=== PATIENT | female | born 1940 | race Caucasian/White ===

== ENCOUNTER 2017-03-06 09:31 | Emergency (ER) | payer BC, OTHER ==
[~2017-03-06] VITALS: Ht 162.6 cm; Wt 56.4 kg
[2017-03-06 12:26] VITALS: BP 179/95
== END 2017-03-06 12:26 | disposition home or self-care (01) ==
LOC: ED 09:31
DX: S50.02XA Contusion of left elbow, initial encounter (principal); W19.XXXA Unspecified fall, initial encounter; Y93.89 Activity, other specified; Y92.096 Garden or yard of other non-institutional residence as the place of occurrence of the external cause; Y99.8 Other external cause status; M06.9 Rheumatoid arthritis, unspecified